=== PATIENT | male | born 1990 ===

== ENCOUNTER 2025-05-01 13:58 | Emergency (ER) | payer SELFPAY ==
[2025-05-01 14:02] VITALS: BP 141/80; PULSE 80; TEMP 37.1; O2SAT 96; BMI 35.3
--- NOTE | 2025-05-01 14:55 | ED_ITS ---
HPI - Skin/Abscess/Foreign Bdy General Chief complaint: Skin/Abscess/Foreign Body Stated complaint: LOWER BACK PAIN Time Seen by Provider: 05/01/25 14:12 Source: patient Mode of arrival: walk-in History of Present Illness HPI narrative: Patient he mentioned lower back pain but after more examination the patient was complaining of some swelling in his rectal area that developed over the last 2 to 3 days, there is only pain no fever and he developed this with no trauma no injuries and he noticed some drainage from that spot where he is having the swelling No fever no chills no systemic symptoms of infection Related Data Previous Rx's ?Medication ?Instructions ?Recorded cephalexin 500 mg capsule 500 mg PO Q8H 7 days #21 cap s 05/01/25 doxycycline hyclate 100 mg tablet 100 mg PO BID 10 day s #20 tabs 05/01/25 naproxen 500 mg tablet 500 mg PO Q12H PRN pain #20 tabs 05/01/25 Allergies Allergy/AdvReac Type Severity Reaction Status Date / Time No Known Drug Allergies Allergy Verified 05/01/25 14:02 Review of Systems ROS Status of ROS 10 or more systems reviewed and unremark able except as noted in history and below PFSH PFSH Social History Little interest or pleasure in doing things: not at all Feeling down, depressed, or hopeless: not at all Exam Narrative Exam Narrative: Nurses notes and vital signs reviewed and patient is not hypoxic. General: Well-appearing and in no apparent distress. Cardiovascular: Regular Rate and Rhythm without murmur, gallop or rub. Respiratory: No accessory muscle use or respiratory distress. Lungs are clear to auscultation, no wheezing, rales or rhonchi GI: Abdomen is soft, non-distended. Normal bowel sounds. No masses appreciated. No tenderness to palpation. No rebound, guarding, or rigidity noted. Perirectal exam showed that the patient have no rectal verge abscess but almost 10 cm away from it up into his buttock the patient have an area of induration with no fluctuation measuring almost 1.5 to 2 cm, tender no drainage Neurological: A&O x4. No cranial nerve dysfunction observed. No truncal ataxia. Moves all extremities. Sensation intact. Psychiatric: Cooperative and interactive. Normal mood and affect. Constitutional Vital Signs, click to edit/add: Last Vital Signs Temp 98.8 F 05/01/25 14:02 Pulse 80 12/16/25 14:02 Resp 16 05/01/25 14:02 BP 141/80 05/01/25 14:02 Pulse Ox 96 05/01/25 14:02 O2 Del Method Room Air 05/01/25 14:02 Course Vital Signs Vital signs: Vital Signs Temperature 98.8 F 05/01/25 14:02 Pulse Rate 80 05/01/25 14:02 Respiratory Rate 16 05/01/25 14:02 Blood Pressure 141/80 05/01/25 14:02 Pulse Oximetry 96 05/01/25 14:02 Oxygen Delivery Method Room Air 05/01/25 14:02 Temperature 98.8 F 05/01/25 14:02 Pulse Rate 80 05/01/25 14:02 Respiratory Rate 16 05/01/25 14:02 Blood Pressure 141/80 05/01/25 14:02 Pulse Oximetry 96 05/01/25 14:02 Oxygen Delivery Method Room Air 05/01/25 14:02 MDM - Skin/Abscess/Foreign Bdy MDM Narrative Medical decision making narrative: The area is too small and there is no fluctuation felt and I did explain to the patient with no systemic symptoms and the fact that he does not want any drainage at the moment he just wants antibiotic the patient will continue his warm sitz bath and started on doxycycline and Keflex Creasing the swelling or any fever for pain will bring the patient back to the ER Otherwise the patient continues antibiotic treatment warm sitz bath and hydrate very well The patient to follow-up with the primary care within 2 to 3 days and to come back to the ER in case of any worsening of the current symptoms or any new symptoms or concerns Discharge Plan Discharge Chief Complaint: Skin/Abscess/Foreign Body Clinical Impression: Abscess, perirectal Patient Disposition: Home, Self-Care Time of Disposition Decision: 14:55 Condition: Good Prescriptions / Home Meds: New naproxen 500 mg tablet 500 mg PO Q12H PRN (Reason: pain) Qty: 20 0RF doxycycline hyclate 100 mg tablet 100 mg PO BID 10 Days Qty: 20 0RF cephalexin 500 mg capsule 500 mg PO Q8H 7 Days Qty: 21 0RF Print Language: Yakut Instructions: Sitz Bath (DC), Rectal Abscess (ED) Additional Instructions: Come back to the ER in case of any increase in swelling any fever or any increase in pain
[2025-05-01] MEDS: KETOROLAC TROMETHAMINE 60 MG/2 ML VIAL IM (15:27)
[2025-05-01] MEDS: CEPHALEXIN 500 MG CAPSULE PO (15:28)
[2025-05-01] MEDS: DOXYCYCLINE MONOHYDRATE 100 MG CAPSULE PO (15:28)
[2025-05-01 15:50] VITALS: BP 138/84; PULSE 76; O2SAT 98
== END 2025-05-01 15:50 | disposition home or self-care (01) ==
PROVIDERS: Emergency Provider Emergency Medicine; PCP Family Medicine
DX: K61.1 Rectal abscess (principal)
CPT/HCPCS: 96372; 99284; J1885